=== PATIENT | female | born 1940 | race Caucasian/White ===

== ENCOUNTER → 2016-04-19 | Outpatient (CLI) | payer OTHER | LOC: CT 07:26 | DX: N20.1 Calculus of ureter (principal); N20.0 Calculus of kidney ==

== ENCOUNTER → 2016-06-17 | Outpatient (CLI) | payer OTHER | LOC: RT 10:07 | DX: Z01.812 Encounter for preprocedural laboratory examination (principal) | CPT/HCPCS: 93005 ==

== ENCOUNTER → 2020-04-17 | Outpatient (CLI) | payer OTHER | LOC: EXRD 09:34 | DX: N20.0 Calculus of kidney (principal) | CPT/HCPCS: 74018 ==

== ENCOUNTER → 2020-08-07 | Outpatient (CLI) | payer OTHER | LOC: MAMO 07-29 13:00 | DX: Z12.31 Encounter for screening mammogram for malignant neoplasm of breast (principal) | CPT/HCPCS: 77063; 77067 ==

== ENCOUNTER → 2021-04-15 | Outpatient (CLI) | payer OTHER | LOC: EXRD 09:01 | DX: M25.561 Pain in right knee (principal); I10 Essential (primary) hypertension; M17.11 Unilateral primary osteoarthritis, right knee | CPT/HCPCS: 73560 ==

== ENCOUNTER 2021-07-16 17:00 | Inpatient (IN) | payer OTHER ==
[~2021-07-16] VITALS: Ht 160 cm; Wt 69.4 kg
[2021-07-16 18:48] LABS: HEMOGLOBIN 14.2 gm/dl (12.3-15.3); RED BLOOD COUNT 4.75 M/UL (4.00-5.10)
[2021-07-16 19:14] LABS: BUN/CREATININE RATIO 27 (0-10)
[2021-07-16 21:47] LABS: RBC (AUTOMATED) 3700 (0-2000); WBC (AUTOMATED) 11670 (0-200)
[2021-07-16 21:48] LABS: MONONUCLEAR CELLS 26.3 (75-100); POLYMORPHONUCLEAR % 73.7 (0-25)
[2021-07-17 06:45] LABS: HEMOGLOBIN 12.4 gm/dl (12.3-15.3)
[2021-07-17 06:52] LABS: RED BLOOD COUNT 4.18 M/UL (4.00-5.10); WHITE BLOOD COUNT 8.5 K/UL (4.5-11.0)
[2021-07-17 07:01] LABS: BUN/CREATININE RATIO 26 (0-10)
[2021-07-17] MEDS ORDERED: ATORVASTATIN CA80 MG PO (12:08)
[2021-07-17] MEDS ORDERED: ARTHRITIS PAIN150 GM TP (12:11)
[2021-07-17] MEDS ORDERED: LEVOTHYROXINE75 MCG PO (12:12)
[2021-07-17] MEDS ORDERED: AMLODIPINE BESYL5 MG PO (12:12)
[2021-07-17] MEDS ORDERED: METOPROLOL SUCC25 MG PO (12:13)
[2021-07-17] MEDS ORDERED: RESTASIS1 EACH OU (12:13)
[2021-07-17] MEDS ORDERED: VITAMIN D350 MC3 PO (12:14)
[2021-07-17] MEDS ORDERED: ASPIRIN EC81 MG PO (12:14)
[2021-07-17] MEDS ORDERED: VISION FORMULA1 EAC1 PO (12:15)
[2021-07-18 05:46] LABS: HEMOGLOBIN 11.9 gm/dl (12.3-15.3); RED BLOOD COUNT 3.99 M/UL (4.00-5.10); WHITE BLOOD COUNT 7.6 K/UL (4.5-11.0)
[2021-07-18 06:13] LABS: BUN/CREATININE RATIO 22 (0-10)
[2021-07-18 14:16] LABS: PROTEIN, BODY FLUID 5.2 g/dL (.)
[2021-07-19 05:01] LABS: HEMOGLOBIN 11.9 gm/dl (12.3-15.3); RED BLOOD COUNT 4.06 M/UL (4.00-5.10); WHITE BLOOD COUNT 6.9 K/UL (4.5-11.0)
[2021-07-19 05:19] LABS: BUN/CREATININE RATIO 26 (0-10)
[2021-07-19] MEDS ORDERED: PREDNISONE 20 M20 MG PO (10:46)
== END 2021-07-19 13:16 | disposition home or self-care (01) | DRG 869 ==
LOC: ER1 17:00 → MED SURG 4 23:05 → CDU 23:05 → MED SURG 4 07-17 00:28
PROVIDERS: Internal Medicine; Physician Assistant; Physician Assistant Medical; ADMIT Internal Medicine
DX: T80.29XA Infection following other infusion, transfusion and therapeutic injection, initial encounter (principal); Y83.8 Other surgical procedures as the cause of abnormal reaction of the patient, or of later complication, without mention of misadventure at the time of the procedure; Z20.822 Contact with and (suspected) exposure to COVID-19; M17.11 Unilateral primary osteoarthritis, right knee; E78.5 Hyperlipidemia, unspecified; I10 Essential (primary) hypertension; M65.9 Synovitis and tenosynovitis, unspecified; E03.9 Hypothyroidism, unspecified; Z98.891 History of uterine scar from previous surgery; Z98.42 Cataract extraction status, left eye; Z98.41 Cataract extraction status, right eye; Z79.01 Long term (current) use of anticoagulants; Z79.82 Long term (current) use of aspirin; Z90.710 Acquired absence of both cervix and uterus
CPT/HCPCS: 36415; 73564; 80048; 80053; 80202; 82945; 83615; 84157; 84439; 84443; 85025; 85652; 86140; 87040; 87070; 87205; 96365; 96366; 96375; 97161; 99284; G0378; J0696; J1650; J3370; J7030; J7070

== ENCOUNTER → 2021-09-10 | Outpatient (CLI) | payer OTHER ==
[~2021-09-10] MED LIST: AMLODIPINE BESYL5 MG PO; ARTHRITIS PAIN150 GM TP; ASPIRIN EC81 MG PO; ATORVASTATIN CA80 MG PO; LEVOTHYROXINE75 MCG PO; METOPROLOL SUCC25 MG PO; PREDNISONE 20 M20 MG PO; RESTASIS1 EACH OU; VISION FORMULA1 EAC1 PO; VITAMIN D350 MC3 PO
== END ==
LOC: MAMO 09-09 09:30
DX: Z12.31 Encounter for screening mammogram for malignant neoplasm of breast (principal)
CPT/HCPCS: 77063; 77067